=== PATIENT | male | born 1930 | race Caucasian/White ===

== ENCOUNTER → 2016-11-20 | Outpatient (CLI) | payer OTHER ==
[~2016-11-20] MED LIST: ASPEC325 PO; CITRUCEL PO; CLB200 PO; CNT PO; FLM4 PO; HYDC25 PO; LRT5 PO; LSN25 PO; OMEG10007 PO; OXYSR10 PO; PATADAY EYE DROPS OPB; SIMV20TA2 PO; ZNTT/150 PO
[2016-11-20 17:47] LABS: BLOOD UREA NITROGEN 27 mg/dl (7-18); BUN/CREATININE RATIO 29.8 (10-20); CALCIUM 8.7 mg/dl (8.5-10.1); CARBON DIOXIDE 31 mmol/L (21-32); CHLORIDE 103 mmol/L (98-107); CREATININE 0.91 mg/dl (0.60-1.40); GLUCOSE 104 mg/dl (70-99); POTASSIUM 3.9 mmol/L (3.5-5.1); SODIUM 142 mmol/L (136-145)
== END | disposition home or self-care (01) ==
LOC: C.LABPVFM 14:40
PROVIDERS: ATTEND Family Medicine
DX: I10 Essential (primary) hypertension (principal)

== ENCOUNTER → 2017-09-05 | Outpatient (CLI) | payer OTHER ==
[2017-09-05 14:03] LABS: ALT/SGPT 24 U/L (12-78); AST/SGOT 22 U/L (15-37); BLOOD UREA NITROGEN 30 mg/dl (7-18); BUN/CREATININE RATIO 33.7 (10-20); CALCIUM 8.8 mg/dl (8.5-10.1); CARBON DIOXIDE 30 mmol/L (21-32); CHLORIDE 107 mmol/L (98-107); CREATININE 0.89 mg/dl (0.60-1.40); GLUCOSE 106 mg/dl (70-99); POTASSIUM 3.9 mmol/L (3.5-5.1); SODIUM 142 mmol/L (136-145)
[2017-09-05 14:05] LABS: CHOLESTEROL 127 mg/dl (0-200); CHOLESTEROL/HDL RATIO 2.6; HDL CHOLESTEROL 48 mg/dl; LDL CHOLESTEROL CALCULATED 64 mg/dl; TRIGLYCERIDES 76 mg/dl (0-150); VERY LOW DENSITY LIPOPROT CALC 15 mg/dl
== END | disposition home or self-care (01) ==
LOC: C.LABPVFM 09:41
PROVIDERS: ATTEND Family Medicine
DX: E78.5 Hyperlipidemia, unspecified (principal); I10 Essential (primary) hypertension